=== PATIENT | female | born 1950 | race Caucasian/White ===

== ENCOUNTER 2019-03-29 08:00 | Outpatient (CLI) | payer MEDICARE, OTHER ==
[2019-03-29 18:51] LABS: BASOPHILS % (AUTO) 0.4 %; EOSINOPHILS # (AUTO) 0.1 10^3/uL (0.0-0.7); EOSINOPHILS % (AUTO) 1.4 %; HGB - HEMOGLOBIN 14.5 g/dL (12.0-16.0); LYMPHOCYTES # (AUTO) 1.8 10^3/uL (1.5-3.5); LYMPHOCYTES % (AUTO) 26.9 %; MEAN CORPUSCULAR HEMOGLOBIN 30.6 pg (27.0-31.0); MEAN CORPUSCULAR HGB CONC 33.7 g/dL (32.0-36.0); MEAN CORPUSCULAR VOLUME 90.8 fL (81.0-99.0); MEAN PLATELET VOLUME 8.9 fL (7.9-10.8); MONOCYTES # (AUTO) 0.5 10^3/uL (0.0-1.0); MONOCYTES % (AUTO) 6.8 %; NEUTROPHILS # (AUTO) 4.4 10^3/uL (1.5-6.6); NEUTROPHILS % (AUTO) 64.5 %; PLT - PLATELET COUNT 287 10^3/uL (130-450); RED BLOOD COUNT 4.75 10^6/uL (4.20-5.40); RED CELL DISTRIBUTION WIDTH 13.5 % (12.0-15.0); WHITE BLOOD COUNT 6.8 x10^3/uL (4.8-10.8)
[2019-03-29 19:24] LABS: ALBUMIN 4.3 g/dL (3.2-5.5); ALBUMIN/GLOBULIN RATIO 1.4 (1.0-2.2); ALKALINE PHOSPHATASE 121 IU/L (42-121); ALT ALANINE AMINOTRANSFERASE 13 IU/L (10-60); AST ASPARTATE AMINOTRANSFERASE 17 IU/L (10-42); BILIRUBIN,TOTAL 0.4 mg/dL (0.2-1.0); BUN - BLOOD UREA NITROGEN 9 mg/dL (6-20); CALCIUM 9.5 mg/dL (8.5-10.3); CARBON DIOXIDE - CO2 26 mmol/L (21-32); CHLORIDE 106 mmol/L (101-111); CHOLESTEROL 200 mg/dL; CREATININE 0.8 mg/dL (0.4-1.0); GFR - MDRD 71 (>89); GLUCOSE 104 mg/dL (70-100); HDL CHOLESTEROL 50 mg/dL; LDL CHOLESTEROL,CALCULATED 124 mg/dL; LDL/HDL RATIO 2.5 (<4.4); SODIUM 140 mmol/L (135-145); TOTAL PROTEIN 7.4 g/dL (6.7-8.2); VLDL CHOLESTEROL 26 mg/dL
== END 2019-03-29 23:59 | disposition home or self-care (01) ==
LOC: LAB.N 08:00
PROVIDERS: ATTEND Nurse Practitioner Gerontology
DX: Z79.899 Other long term (current) drug therapy (principal); I10 Essential (primary) hypertension
CPT/HCPCS: 36415; 80053; 80061; 83721; 84443; 85025

== ENCOUNTER 2019-08-29 13:12 | Outpatient (CLI) | payer MEDICARE, OTHER ==
--- NOTE | 2019-09-01 09:11 | Mammography Report ---
Reason: MAMMO SCREENING Procedure Date: 08/29/2019 Accession Number: [id number] / [id number] Procedure: MGN - Screening Mammo Dig Bilat CPT Code: FULL RESULT: EXAM: Screening Mammo Dig Bilat DATE: 08/29/2019 1:38 PM CLINICAL HISTORY: Screening encounter. TECHNIQUE: (B) - Bilateral CC and MLO views were obtained. COMPARISON: 01/09/2015 through 01/27/2012. PARENCHYMAL PATTERN: (F) - The breast(s) demonstrate(s) diffuse fatty replacement. FINDINGS: There are no suspicious masses, calcifications, or areas of distortion. IMPRESSION: Negative examination. BI-RADS category 1. RECOMMENDATION: (ANNUAL) - Recommend routine annual screening mammography. BI-RADS CATEGORY: (1) - Negative. STANDARD QUALIFYING STATEMENTS: 1. This examination was not reviewed with the aid of Computer-Aided Detection (CAD). 2. A negative or benign imaging report should not preclude biopsy if clinically suspicious findings are present. 3. Dense breasts may obscure an underlying neoplasm. 4. This examination was reviewed without the aid of 3D breast imaging (tomosynthesis).
== END 2019-08-29 13:13 | disposition home or self-care (01) ==
LOC: DI.N 13:12
PROVIDERS: ATTEND Nurse Practitioner Gerontology
DX: Z12.31 Encounter for screening mammogram for malignant neoplasm of breast (principal)
CPT/HCPCS: 77067

== ENCOUNTER 2019-11-07 11:47 | Outpatient (CLI) | payer MEDICARE, OTHER ==
[2019-11-07 18:45] LABS: BASOPHILS % (AUTO) 0.8 %; EOSINOPHILS # (AUTO) 0.1 10^3/uL (0.0-0.7); EOSINOPHILS % (AUTO) 2.5 %; HGB - HEMOGLOBIN 13.4 g/dL (12.0-16.0); LYMPHOCYTES # (AUTO) 1.4 10^3/uL (1.5-3.5); LYMPHOCYTES % (AUTO) 27.6 %; MEAN CORPUSCULAR HEMOGLOBIN 28.8 pg (27.0-31.0); MEAN CORPUSCULAR HGB CONC 32.4 g/dL (32.0-36.0); MEAN CORPUSCULAR VOLUME 88.8 fL (81.0-99.0); MEAN PLATELET VOLUME 10.2 fL (7.9-10.8); MONOCYTES # (AUTO) 0.5 10^3/uL (0.0-1.0); MONOCYTES % (AUTO) 8.9 %; NEUTROPHILS # (AUTO) 3.1 10^3/uL (1.5-6.6); PLT - PLATELET COUNT 294 10^3/uL (130-450); RED BLOOD COUNT 4.65 10^6/uL (4.20-5.40); RED CELL DISTRIBUTION WIDTH 13.3 % (12.0-15.0); WHITE BLOOD COUNT 5.2 x10^3/uL (4.8-10.8)
[2019-11-07 18:56] LABS: ALBUMIN 4.2 g/dL (3.2-5.5); ALBUMIN/GLOBULIN RATIO 1.4 (1.0-2.2); BILIRUBIN,TOTAL 0.3 mg/dL (0.2-1.0); CALCIUM 9.6 mg/dL (8.5-10.3); CREATININE 0.9 mg/dL (0.4-1.0); TOTAL PROTEIN 7.2 g/dL (6.7-8.2)
== END 2019-11-07 23:59 | disposition home or self-care (01) ==
LOC: LAB.N 11:47
PROVIDERS: ATTEND Nurse Practitioner Gerontology
DX: I10 Essential (primary) hypertension (principal); L29.9 Pruritus, unspecified
CPT/HCPCS: 36415; 80053; 85025

== ENCOUNTER 2020-09-03 07:00 | Outpatient (CLI) | payer MEDICARE, OTHER ==
[2020-09-03 18:16] LABS: BASOPHILS % (AUTO) 0.6 %; EOSINOPHILS # (AUTO) 0.2 10^3/uL (0.0-0.7); EOSINOPHILS % (AUTO) 2.2 %; HGB - HEMOGLOBIN 12.4 g/dL (12.0-16.0); LYMPHOCYTES # (AUTO) 2.5 10^3/uL (1.5-3.5); LYMPHOCYTES % (AUTO) 36.2 %; MEAN CORPUSCULAR HEMOGLOBIN 30.2 pg (27.0-31.0); MEAN CORPUSCULAR HGB CONC 32.7 g/dL (32.0-36.0); MEAN CORPUSCULAR VOLUME 92.2 fL (81.0-99.0); MEAN PLATELET VOLUME 10.4 fL (7.9-10.8); MONOCYTES # (AUTO) 0.5 10^3/uL (0.0-1.0); MONOCYTES % (AUTO) 7.2 %; NEUTROPHILS # (AUTO) 3.7 10^3/uL (1.5-6.6); NEUTROPHILS % (AUTO) 53.5 %; PLT - PLATELET COUNT 291 10^3/uL (130-450); RED BLOOD COUNT 4.11 10^6/uL (4.20-5.40); RED CELL DISTRIBUTION WIDTH 13.1 % (12.0-15.0); WHITE BLOOD COUNT 6.9 x10^3/uL (4.8-10.8)
[2020-09-03 18:47] LABS: ALBUMIN 4.2 g/dL (3.2-5.5); ALBUMIN/GLOBULIN RATIO 1.6 (1.0-2.2); ALKALINE PHOSPHATASE 136 IU/L (42-121); ALT ALANINE AMINOTRANSFERASE 12 IU/L (10-60); AST ASPARTATE AMINOTRANSFERASE 17 IU/L (10-42); BILIRUBIN,TOTAL 0.8 mg/dL (0.2-1.0); BUN - BLOOD UREA NITROGEN 27 mg/dL (6-20); CALCIUM 9.4 mg/dL (8.5-10.3); CARBON DIOXIDE - CO2 21 mmol/L (21-32); CHLORIDE 112 mmol/L (101-111); CHOL/HDL RATIO 4.3 (<4.4); CHOLESTEROL 199 mg/dL; CREATININE 1.1 mg/dL (0.4-1.0); GLUCOSE 82 mg/dL (70-100); HDL CHOLESTEROL 46 mg/dL; LDL CHOLESTEROL,CALCULATED 126 mg/dL; LDL/HDL RATIO 2.7 (<4.4); SODIUM 141 mmol/L (135-145); TOTAL PROTEIN 6.9 g/dL (6.7-8.2); VLDL CHOLESTEROL 27 mg/dL
[2020-09-03 19:56] LABS: HEMOGLOBIN A1c% 5.1 % (4.27-6.07)
== END 2020-09-03 23:59 | disposition home or self-care (01) ==
LOC: LAB.WCP 07:00
PROVIDERS: ATTEND Nurse Practitioner Family
DX: I10 Essential (primary) hypertension (principal); R73.9 Hyperglycemia, unspecified; Z79.899 Other long term (current) drug therapy
CPT/HCPCS: 36415; 80053; 80061; 83036; 83721; 84443; 85025

== ENCOUNTER 2020-10-05 11:12 | Outpatient (CLI) | payer MEDICARE, OTHER ==
[2020-10-05 18:59] LABS: CALCIUM 9.5 mg/dL (8.5-10.3)
== END 2020-10-05 23:59 | disposition home or self-care (01) ==
LOC: LAB.WCP 11:12
PROVIDERS: ATTEND Nurse Practitioner Family
DX: R94.4 Abnormal results of kidney function studies (principal)
CPT/HCPCS: 36415; 80048

== ENCOUNTER 2020-10-08 07:00 | Outpatient (CLI) | payer MEDICARE, OTHER ==
--- NOTE | 2020-10-08 16:21 | XRAY Report ---
PROCEDURE: Shoulder 3 View RT INDICATIONS: OSTEOARTHRITIS OF R SHOULDER TECHNIQUE: 4 views of the shoulder were acquired. COMPARISON: None. FINDINGS: Bones: No fractures or dislocations. Moderate osteoarthritic changes in glenohumeral joint are seen. There is likely postsurgical widening of acromioclavicular joint. No suspicious bony lesions. Visua lized ribs appear intact. Soft tissues: No suspicious soft tissue calcifications. IMPRESSION: Moderate glenohumeral joint osteoarthritis and likely postsurgical widening of acromiocl avicular joint. No fracture or dislocation. Reviewed by: Jose Melton MD on 10/08/2020 4:19 PM PST Approved by: Jose Melton MD on 10/08/2020 4:19 PM PST Station ID: [id number]
== END 2020-10-08 23:59 | disposition home or self-care (01) ==
LOC: DI.N 07:00
PROVIDERS: ATTEND Orthopaedic Surgery
DX: M19.011 Primary osteoarthritis, right shoulder (principal)

== ENCOUNTER 2020-11-07 11:37 | Outpatient (CLI) | payer MEDICARE, OTHER ==
--- NOTE | 2020-11-07 13:30 | CT Report ---
PROCEDURE: UPPER EXTREMITY WO - RT INDICATIONS: OSTEOARTHRITIS, RT SHLDR TECHNIQUE: Noncontrast 3 mm axial sections acquired of the right shoulder, with coronal and sagittal reformats. COMPARISON: None. FINDINGS: Image quality: Excellent. Bones: There is moderate periarticular osteophyte formation at the acromioclavicular joint. There is anterior subluxation of the humeral head. Moderate periarticular osteophyte formation at the glenohu meral joint is present. No fracture nor osseous lesion. Soft tissues: Visualized lungs are within normal limits. No soft tissue fluid collections. No region al adenopathy. Calcification of the rotator cuff tendons. IMPRESSION: 1. Acromioclavicular and glenohumeral joint osteoarthritis. 2. Calcific tendinitis of the rotator cuff; this could be further assessed with MRI, if clinically in dicated. 3. No fracture. Reviewed by: Nery Cortes MD on 11/07/2020 1:29 PM PST Approved by: Nery Cortes MD on 11/07/2020 1:29 PM PST Station ID: [id number]
== END 2020-11-07 11:38 | disposition home or self-care (01) ==
LOC: DI 11:37
PROVIDERS: ATTEND Orthopaedic Surgery
DX: M19.011 Primary osteoarthritis, right shoulder (principal); M75.31 Calcific tendinitis of right shoulder

== ENCOUNTER 2020-12-04 11:16 | Outpatient (CLI) | payer MEDICARE, OTHER ==
[2020-12-04 19:11] LABS: BASOPHILS % (AUTO) 0.7 %; EOSINOPHILS # (AUTO) 0.2 10^3/uL (0.0-0.7); EOSINOPHILS % (AUTO) 2.6 %; MEAN CORPUSCULAR HEMOGLOBIN 30.2 pg (27.0-31.0); MEAN CORPUSCULAR HGB CONC 32.3 g/dL (32.0-36.0); MEAN CORPUSCULAR VOLUME 93.5 fL (81.0-99.0); MEAN PLATELET VOLUME 10.8 fL (7.9-10.8); MONOCYTES # (AUTO) 0.5 10^3/uL (0.0-1.0); MONOCYTES % (AUTO) 7.9 %; NEUTROPHILS # (AUTO) 3.5 10^3/uL (1.5-6.6); NEUTROPHILS % (AUTO) 56.6 %; PLT - PLATELET COUNT 289 10^3/uL (130-450); RED CELL DISTRIBUTION WIDTH 13.1 % (12.0-15.0); WHITE BLOOD COUNT 6.1 x10^3/uL (4.8-10.8)
[2020-12-04 19:27] LABS: ALBUMIN 3.9 g/dL (3.2-5.5); ALBUMIN/GLOBULIN RATIO 1.4 (1.0-2.2); BILIRUBIN,TOTAL 0.5 mg/dL (0.2-1.0); CALCIUM 9.2 mg/dL (8.5-10.3); TOTAL PROTEIN 6.6 g/dL (6.7-8.2)
== END 2020-12-04 23:59 | disposition home or self-care (01) ==
LOC: LAB.WCP 11:16
PROVIDERS: ATTEND Nurse Practitioner Family
DX: Z01.812 Encounter for preprocedural laboratory examination (principal)
CPT/HCPCS: 36415; 80053; 85025

== ENCOUNTER 2020-12-07 08:00 | Outpatient (CLI) | payer MEDICARE, OTHER | END 2020-12-07 23:59 | disposition home or self-care (01) | LOC: LAB.R 08:00 | PROVIDERS: ATTEND Orthopaedic Surgery | DX: Z01.812 Encounter for preprocedural laboratory examination (principal); Z20.822 Contact with and (suspected) exposure to COVID-19 ==

== ENCOUNTER 2020-12-12 07:44 | Inpatient (IN) | payer MEDICARE, OTHER ==
[2020-12-12] MEDS ORDERED: LACTATED RINGERS 1,000 ML IV ONE ×2 (07:50→12:22)
[2020-12-12] MEDS ORDERED: DEXAMETHASONE 10 MG/ML VIAL ONE ×2 (08:11→08:42)
[2020-12-12] MEDS ORDERED: CELECOXIB 100 MG CAPSULE PO ONE (08:11)
[2020-12-12] MEDS ORDERED: ACETAMINOPHEN 1,000 MG/100 ML 100 ML IV ONE (08:12)
[2020-12-12] MEDS ORDERED: ceFAZolin 2 GM/50 ML 2 GM/50 ML BAG IV ONE (08:12)
[2020-12-12] MEDS ORDERED: SCOPOLAMINE PATCH TOP ONE (08:36)
[2020-12-12] MEDS ORDERED: MIDAZOLAM 2 MG/2 ML VIAL ONE ×2 (08:41→08:47)
[2020-12-12] MEDS ORDERED: LIDOCAINE-MPF 2% 5 ML VIAL ONE ×2 (08:42→08:46)
[2020-12-12] MEDS ORDERED: EPINEPHrine 1 MG/ML AMP ONE (08:42)
[2020-12-12] MEDS ORDERED: ROPIVACAINE 0.5% PF 20 ML AMPULE ONE (08:42)
[2020-12-12] MEDS ORDERED: ROCURONIUM 50 MG/5 ML VIAL ONE (08:46)
[2020-12-12] MEDS ORDERED: PROPOFOL 200 MG/20 ML VIAL IVP ONE (08:46)
[2020-12-12] MEDS ORDERED: ONDANSETRON 4 MG/2 ML VIAL ONE (08:46)
[2020-12-12] MEDS ORDERED: fentaNYL 100 MCG/2 ML VIAL ONE (08:48)
[2020-12-12] MEDS ORDERED: MORPHINE 2 MG/ML CARPUJECT IVP PRN (08:51)
[2020-12-12] MEDS ORDERED: fentaNYL 100 MCG/2 ML VIAL IVP PRN (08:51)
[2020-12-12] MEDS ORDERED: METOCLOPRAMIDE 10 MG/2 ML VIAL IVP PRN (08:51)
[2020-12-12] MEDS ORDERED: ATROPINE ABBOJECT 1 MG/10 ML SYRINGE IVP PRN (08:51)
[2020-12-12] MEDS ORDERED: HYDROmorphone 0.5 MG/0.5 ML SYRINGE IVP PRN (08:51)
[2020-12-12] MEDS ORDERED: ePHEDrine 50 MG/ML VIAL IVP PRN (08:51)
[2020-12-12] MEDS ORDERED: NALOXONE 0.4 MG/ML VIAL IVP PRN (08:51)
[2020-12-12] MEDS ORDERED: ONDANSETRON 4 MG/2 ML VIAL IVP PRN ×2 (08:51→12:19)
--- NOTE | 2020-12-12 08:51 | ANESTHESIA ---
Pre-Anesthesia VS, & Labs - Diagnosis right shoulder osteoarthritis - Procedure right total shoulder arthroscopy Vital Signs: Temp Pulse Resp BP Pulse Ox 36.8 C 84 18 107/61 100 12/12/20 07:50 12/12/20 07:50 12/12/20 07:50 12/12/20 07:50 12/12/20 07:50 Height: 5 ft 2 in Weight (kg): 64.4 kg Body Mass Index: 25.9 BMI Classification: Overweight - NPO >8 hours - Is Patient ?: No - Lab Results Current Lab Results: Laboratory Tests 12/12/20 08:20: POC Whole Bld Glucose 79 Lab results reviewed: Yes Home Medications and Allergies Home Medications: Ambulatory Orders Amlodipine Besylate [Norvasc] 10 mg PO DAILY 12/06/20 Cimetidine 800 mg PO PRN PRN 12/06/20 Spironolactone [Aldactone] 25 mg PO DAILY 12/06/20 Sumatriptan Succinate [Imitrex] 50 mg PO ONCE PRN 12/06/20 buPROPion HCL [Bupropion HCl Sr] 200 mg PO DAILY 12/06/20 hydrOXYzine HCL [Hydroxyzine HCl] 25 mg PO QID PRN 12/06/20 traMADol [Ultram] 50 mg PO DAILY PRN 12/06/20 Hydrochlorothiazide 12.5 mg PO DAILY 04/04/15 Lisinopril 40 mg PO DAILY 04/04/15 Quetiapine Fumarate [Seroquel] 300 mg PO QPM 04/04/15 Amlodipine Besylate [Norvasc] 10 mg PO DAILY 12/06/20 Cimetidine 800 mg PO PRN PRN 12/06/20 Spironolactone [Aldactone] 25 mg PO DAILY 12/06/20 Sumatriptan Succinate [Imitrex] 50 mg PO ONCE PRN 12/06/20 buPROPion HCL [Bupropion HCl Sr] 200 mg PO DAILY 12/06/20 hydrOXYzine HCL [Hydroxyzine HCl] 25 mg PO QID PRN 12/06/20 traMADol [Ultram] 50 mg PO DAILY PRN 12/06/20 Allergies/Adverse Reactions: Allergies Allergy/AdvReac Type Severity Reaction Status Date / Time morphine Allergy Itching Verified 04/04/15 18:23 Anes History & Medical History - Anesthetic History Anesthesia Complications: reports: Post-Operative Nausea/Vomiting Family history of Anesthesia Complications: Denies Family history of Malignant Hyperthermia: Denies - Medical History Cardiovascular: reports: Hypertension, Murmur Pulmonary: reports: None Gastrointestinal: reports: GERD Urinary: reports: None Musculoskeletal: reports: Osteoarthritis, Other Endocrine/Autoimmune: reports: None Skin: reports: None Smoking Status: Never smoker - Surgical History General: Colonoscopy, EGD Gynecologic: Hysterectomy Orthopedic: Knee replacement, Shoulder arthroplasty Exam General: Alert, Oriented x3, Cooperative, No acute distress Dental: Dentures full Upper, Dentures full Lower Mouth Openin Fingerbreadth Neck Mobility: Normal Mallampati classification: II Respiratory: Lungs clear, Normal breath sounds, No respiratory distress, No accessory muscle use Plan Anesthesia Type: General, Interscalene Block Regional Block: Per Surgeon's request for Post Op pain control Consent for Procedure(s) Verified and Reviewed: Yes Code Status: Attempt Resuscitation ASA classification: 2-Mild systemic disease Is this case an emergency?: No
[2020-12-12] MEDS ORDERED: LACTATED RINGERS 1,000 ML IV SCH (09:00)
[2020-12-12] MEDS ORDERED: PHENYLEPHRINE 10 MG/ML VIAL ONE (09:27)
[2020-12-12] MEDS ORDERED: TRANEXAMIC ACID 1,000 MG/10 ML VIAL ONE (09:58)
[2020-12-12] MEDS ORDERED: THROMBIN (BOVINE) 5,000 UNIT VIAL TOP ONE (10:46)
--- NOTE | 2020-12-12 12:00 | OPERATIVE REPORT ---
Operative Report - General Admit Date: 12/12/20 Procedure Date: 12/12/20 Planned Procedure: Right total shoulder arthroplasty Pre-Op Diagnosis: Osteoarthritis glenohumeral joint right shoulder Procedure Performed: Right total shoulder arthroplasty using the [employer] Integra total shoulder arthroplasty: 42 mm x 16 mm humeral head, standard proximal body, 13 mm distal body, extra small cemented all polyethylene glenoid component with finlock - Procedure Note Primary Surgeon: German Estrella MD Secondary Surgeon: Artis REICH Anesthesia Technique: General ET tube, Regional block Pathology: Complete loss of articular cartilage to the humeral head and glenoid right shoulder. Rotator cuff was intact. Estimated Blood Loss (mL): 75 Indications: This is a 70-year-old woman with daily pain to her right shoulder not responding to conservative treatment. She has limited and painful movement right shoulder, crepitus, abnormal x-rays that show complete loss of joint space, abnormal CT scan of the right shoulder showing complete loss of glenohumeral joint space. Findings: There was complete loss of articular cartilage to the glenohumeral joint with osteophytes about humeral head. Complications: None noted - Other Other Information/Narrative: The patient was brought to the operating room and placed in a beachchair positioner. The head of the bed was elevated to 30 degrees and the hips and knees were flexed about 30 degrees. The [employer] beachchair positioner was utilized with the attached arm escalera. After satisfactory anesthesia had been achieved, the facemask was positioned carefully and the neck was placed in a neutral position. The right shoulder and right upper extremity were prepped and draped in a sterile manner in the usual fashion. A timeout procedure was performed by the entire operating room team and all were in agreement. A deltopectoral incision was made starting near the clavicle, lateral to the coracoid and extending to the deltoid laterally. The cephalic vein was identified as a guide to the deltopectoral interval. The cephalic vein was retracted medially and the deltoid laterally. The pectoralis insertion was released over about a 1 cm area. The biceps tendon was identified in the rotator interval. The biceps tendon was divided and tagged to the pectoralis. A subscapularis tenotomy was performed about a centimeter medial to its insertion this was taken down through capsule. Proximally the rotator interval was opened and distally the exposure was directly against the inferior humeral head with care taken to protect the axillary nerve. The conjoined tendon had been retracted medially and care was taken to protect the muscular cutaneous nerve. The anterior inferior capsule was released, small osteophytes were removed and the humeral head easily dislocated with external rotation. The humeral head was opened with a starting awl. The intramedullary cutting guide was utilized. The guidepin was secured with half pins with the guide set at 30 degrees of retroversion. An oscillating saw was used through the captured guide to perform the osteotomy of the humeral head. Care was taken to protect the rotator cuff.The humeral head was then retracted the arm was placed in some abduction and slight external rotation. A posterior glenoid retractor was inserted and another anteriorly. The center of the glenoid was identified. The size of the glenoid was an extra small. A K wire was then inserted through the center of the glenoid guide obtaining bicortical pin fixation. Next the glenoid reamer was utilized to lightly decorticate and contour the glenoid. A trial glenoid component was inserted and had good fit. Next the glenoid guide was inserted after a central drill hole has been made. 2 inferior holes and 1 superior hole was drilled with the provided drill bit. The holes were cleared of any debris. A glenoid pegged pusher was seated, obtaining good fit. The drill holes were cleared with pulse lavage, Gelfoam and thrombin. Cement was placed in the superior and 2 inferior glenoid drill holes. The extra small glenoid was then inserted and gently impacted. This was found to have excellent stability. The humerus was then opened with progressive gentle reaming by hand to 13 mm. A standard proximal body was indicated. Trial reduction was performed utilizing an eccentric head. The 42 mm x 16 mm had provided good coverage of the humeral head and good stability. The size of the humeral head osteotomy was approximately 42 to 44 mm and approximately 14 mm thick; the final humeral head prosthesis was very close to the osteotomy fragment. The trial reduction was performed there was good stability and motion. The permanent humeral component was assembled on the back table this was gently impacted and left just a little bit proud to allow impacting the humeral head on the trunnion before full impaction of the humeral component. The shoulder was reduced it was stable to anterior and posterior stress, good bounce back, over 120 degrees of flexion, external rotation was stable to 35 degrees or more. Internal rotation to opposite shoulder. The wound was irrigated. The subscapularis had been tagged with #2 Ethibond and 2 sutures were taken through the prosthesis before proceeding with the humeral prosthesis. Additional sutures were placed to stabilize the arthrotomy from superior to inferior. This provided good stability to the shoulder. There was not any excessive tension to the subscapularis or rotator interval repair. The the deltopectoral interval was closed with a 2-0 suture. The subcutaneous tissue was closed with 2-0 suture and the skin was closed with a 3-0 subcuticular suture as well as Dermabond. A silver impregnated dressing was applied as well as a sling. She received 2 g of Ancef intravenously. She tolerated the procedure well. A physician fire assistant was utilized to provide retraction, protection of vital structures, positioning, wound closure.
[2020-12-12] MEDS ORDERED: SEVOFLURANE 250 ML LIQUID INH ONE (12:01)
[2020-12-12] MEDS ORDERED: SODIUM CHLORIDE FLUSH 0.9% 10 ML SYRINGE IVP PRN (12:19)
[2020-12-12] MEDS ORDERED: NEOSTIGMINE 1 MG/1 ML 10 ML MDV ONE (12:55)
[2020-12-12] MEDS ORDERED: GLYCOPYRROLATE 1 MG/5 ML VIAL ONE (12:55)
[2020-12-12] MEDS ORDERED: SODIUM CHLORIDE 0.9% 500 ML IV ONE (13:14)
[2020-12-12] MEDS: SODIUM CHLORIDE 0.9% 1,000 ML IV SCH ×2 (13:36→23:40)
[2020-12-12 13:48] LABS: BASOPHILS % (AUTO) 0.2 %; EOSINOPHILS % (AUTO) 0.1 %; HGB - HEMOGLOBIN 11.6 g/dL (12.0-16.0); LYMPHOCYTES # (AUTO) 0.4 10^3/uL (1.5-3.5); LYMPHOCYTES % (AUTO) 3.5 %; MEAN CORPUSCULAR HEMOGLOBIN 30.1 pg (27.0-31.0); MEAN CORPUSCULAR HGB CONC 32.8 g/dL (32.0-36.0); MEAN CORPUSCULAR VOLUME 91.7 fL (81.0-99.0); MEAN PLATELET VOLUME 10.2 fL (7.9-10.8); MONOCYTES # (AUTO) 0.1 10^3/uL (0.0-1.0); MONOCYTES % (AUTO) 0.6 %; NEUTROPHILS # (AUTO) 10.5 10^3/uL (1.5-6.6); NEUTROPHILS % (AUTO) 95.1 %; PLT - PLATELET COUNT 238 10^3/uL (130-450); RED BLOOD COUNT 3.86 10^6/uL (4.20-5.40)
[2020-12-12 14:07] LABS: ALBUMIN 3.7 g/dL (3.2-5.5); ALBUMIN/GLOBULIN RATIO 1.4 (1.0-2.2); BILIRUBIN,TOTAL 0.4 mg/dL (0.2-1.0); CALCIUM 8.9 mg/dL (8.5-10.3); CREATININE 1.2 mg/dL (0.4-1.0); TOTAL PROTEIN 6.3 g/dL (6.7-8.2)
[2020-12-12] MEDS: ceFAZolin 2 GM/50 ML 2 GM/50 ML BAG IV SCH ×2 (14:18→21:52)
--- NOTE | 2020-12-12 14:29 | PHARMACY PROGRESS NOTE ---
- Best Possible Medication History Admit Date and Time: 12/12/20 0744 Processed by: Pharmacy Medication History completed: Yes Patient Interview: Completed Secondary Source(s): Insurance records (Completed 12/12 by Vance) As the person ultimately responsible for medication therapy, providers are able to order a medication from an existing home medication list in [facility] via the "Reconcile Routine" prior to Confirmation of that medication by support analyst. Such practice is discouraged except when the physician, in their clinical judgment, deems that a medical need exists for a medication without regard to previous use.
--- NOTE | 2020-12-12 16:34 | CONSULTATION NOTE ---
Referring Provider Name of Referring Provider:: Dr. Estrella Consult Date: 12/12/20 Chief Complaint - Chief Complaint Chief Complaint: Right total shoulder pain History of Present Illness - Admitted From Admitted From:: medical floor - History Obtained From Records Reviewed: [facility] History obtained from: pt Exam Limitations: no - History of Present Illness HPI Comment/Other: This is 70 years old female with medical history Significant of hypertension, depressure and anxiety, GERD. Medical team was consulted for medical management of Status post of Right total shoulder arthroplasty. Patient report right shoulder has some pain. Patient just finished her right shoulder surgery. Patient deny chest pain, fever, shortness breathing. 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 Meds/Allgy - Home Medications Home Medications: Ambulatory Orders Medication Instructions Recorded Confirmed Amlodipine Besylate [Norvasc] 10 mg PO DAILY 12/06/20 12/12/20 Spironolactone [Aldactone] 25 mg PO BID 12/06/20 12/12/20 Sumatriptan Succinate [Imitrex] 50 mg PO DAILY PRN MDD 100 MG 12/06/20 12/12/20 hydrOXYzine HCL [Hydroxyzine HCl] 25 mg PO QID PRN 12/06/20 12/12/20 traMADol [Ultram] 50 mg PO Q6H PRN 12/06/20 12/12/20 Lisinopril [Zestril] 40 mg PO DAILY 12/12/20 12/12/20 Mirtazapine [Remeron] 15 mg PO QPM 12/12/20 12/12/20 QUEtiapine [SEROquel] 100 mg PO QPM 12/12/20 12/12/20 buPROPion [Wellbutrin Sr] 100 mg PO DAILY 12/12/20 12/12/20 hydroCHLOROthiazide [Hydrodiuril] 12.5 mg PO DAILY 12/12/20 12/12/20 oxyCODONE [Roxicodone] 5 mg PO Q6H PRN 12/12/20 12/12/20 rOPINIRole [Requip] 1 mg PO QPM 12/12/20 12/12/20 - Allergies Allergies/Adverse Reactions: Allergies Allergy/AdvReac Type Severity Reaction Status Date / Time morphine Allergy Itching Verified 04/04/15 18:23 Review of Systems - Constitutional Constitutional: denies: Fever, Chills, Diaphoresis - Eyes Eyes: denies: Pain, Blurred vision, Field loss, Vision loss - Ears, Nose & Throat Ears, Nose & Throat: denies: Ear pain, Vertigo, Nosebleeds, Sore throat, Bleeding gums - Cardiovascular Cariovascular: denies: Irregular heart rate, Palpitations, Chest pain, Lig htheadedness, Syncope, Exertional dyspnea, Decr. exercise tolerance - Respiratory Respiratory: denies: Cough, Sputum production, Wheezing, Hemoptysis, SOB at res t, SOB with exertion - Gastrointestinal Gastrointestinal: denies: Abdominal pain, Constipation, Diarrhea, Black stools, Bloody stools, Nausea, Vomiting - Genitourinary Genitourinary: denies: Dysuria, Urgency, Incontinence - Musculoskeletal Musculoskeletal: reports: Limited range of motion. denies: Muscle pain, Muscle aches - Integumentary Integumentary: denies: Rash, Lesions, Lumps - Neurological Neurological: denies: General weakness, Focal weakness, Headache, Numbness, Pre- existing deficit, Abnormal gait, Seizures, Incoordination, Slurred speech - Psychiatric Psychiatric: denies: Depression, Suicidal, Delusions - Endocrine Endocrine: denies: Polyuria, Polydypsia - Hematologic/Lymphatic Hematologic/Lymphatic: denies: Anemia, Petechiae, Blood clots Exam - Vital Signs Vital Signs: Vital Signs x48h Temp Pulse Pulse Resp BP BP Pulse Ox 12/12/20 15:50 87 16 107/52 L 99 12/12/20 14:49 36.4 C L 88 16 102/52 L 97 12/12/20 13:49 85 18 89/49 L 99 12/12/20 13:06 36.4 C L 88 16 75/47 L 12/12/20 12:44 36.6 C 102 H 19 97/50 L 99 12/12/20 12:36 36.7 C 110 H 16 98/52 L 97 12/12/20 12:31 36.7 C 114 H 19 100/46 L 100 12/12/20 12:26 36.7 C 115 H 22 131/55 H 99 12/12/20 12:21 36.7 C 99 15 141/65 H 99 - Physical Exam General Appearance: positive: No acute distress, Alert. negative: Lethargic Eyes Bilateral: positive: Normal inspection, PERRL, No lid inflammation ENT: positive: ENT inspection nml, No signs of dehydration. negative: Purulent nasal drainage Neck: positive: Nml inspection, Trachea midline. negative: Thyromegaly, Tracheal deviation Respiratory: positive: Chest non-tender, No respiratory distress, Breath sounds nml. negative: Wheezes, Rales Cardiovascular: positive: Regular rate & rhythm. negative: Tachycardia, Bradycardia Peripheral Pulses: positive: 2+ Abdomen: positive: Non-tender, Nml bowel sounds, No distention. negative: Tenderness, Guarding, Rebound Back: positive: Nml inspection Skin: positive: Color nml, Warm, Dry. negative: Cyanosis, Diaphoresis, Pallor Extremities: negative: Calf tenderness Neurologic/Psychiatric: positive: Oriented x3, Sensation nml, Mood/affect nml. negative: Weakness, Sensory loss, Facial droop, Slurred/abnml speech, Depressed mood/affect Conclusion/Plan - Plan Plan: 1, Hypotension, patient present medical floor, nurse report patient blood pres sure is 74/47, Immediate assessment to patient patient is asymptomatic, She logically talk with me. She denies chest pain, dizziness. She reported she did have hypotension in the past. She reported she take some of the blood pressure medicine in the morning. Order 500 cc intravenous bolus normal saline, Recheck blood pressure then patient systolic blood pressure is 100. Hold patient's home blood pressure medicine now, Continue vital signs monitor, continue intravenous IV fluids. 2, depression/anxiety, Patient has history of depression and anxiety, Will resume patient home medication, Continue monitor patient with vital and lab monitor 3, Dehydration, Patient's creatinine increases to 1.2, her baseline 1.0. 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
[2020-12-12] MEDS ORDERED: SUMAtriptan 25 MG TABLET PO PRN (16:48)
[2020-12-12] MEDS ORDERED: hydrOXYzine PAMOATE 25 MG CAPSULE PO PRN (16:49)
[2020-12-12] MEDS: FAMOTIDINE 20 MG TABLET PO SCH ×2 (16:59→20:00)
[2020-12-12] MEDS: SODIUM CHLORIDE FLUSH 0.9% 10 ML SYRINGE IVP SCH ×2 (16:59→23:44)
[2020-12-12] MEDS: ACETAMINOPHEN 500 MG TABLET PO SCH ×2 (17:00→23:40)
--- NOTE | 2020-12-12 17:01 | ANESTHESIA POST OP EVALUATION ---
Anesthesia Post Eval - Post Anesthesia Eval Vitals: Last Vital Signs Temp 36.4 C L 12/12/20 14:49 Pulse 87 12/12/20 15:50 Resp 16 12/12/20 15:50 BP 107/52 L 12/12/20 15:50 Pulse Ox 99 12/12/20 15:50 CV Function Including HR & BP: positive: Stable Pain Control: positive: Satisfactory Nausea & Vomiting: positive: Negative Mental Status: positive: Baseline Respiratory Status: Airway Patent Hydration Status: Satisfactory Anesthesia Complications: positive: None
[2020-12-12] MEDS ORDERED: ACETAMINOPHEN 325 MG TABLET PO SCH (18:00)
[2020-12-12] MEDS: ASPIRIN EC 81 MG TABLET PO SCH (20:00)
[2020-12-12] MEDS: CELECOXIB 100 MG CAPSULE PO SCH (20:01)
[2020-12-12] MEDS: ethyl alcohoL 62% SWAB AMPULE NAS SCH (20:01)
[2020-12-12] MEDS: oxyCODONE 5 MG TABLET PO PRN (20:03)
[2020-12-12] MEDS ORDERED: rOPINIRole 1 MG TABLET PO SCH (21:00)
[2020-12-12] MEDS ORDERED: MIRTAZAPINE 15 MG TABLET PO SCH (21:00)
[2020-12-12] MEDS ORDERED: QUEtiapine 100 MG TABLET PO SCH (21:00)
[2020-12-13] MEDS: oxyCODONE 5 MG TABLET PO PRN ×3 (02:25→15:04)
[2020-12-13 04:59] LABS: BASOPHILS % (AUTO) 0.1 %; HGB - HEMOGLOBIN 9.9 g/dL (12.0-16.0); LYMPHOCYTES # (AUTO) 0.8 10^3/uL (1.5-3.5); LYMPHOCYTES % (AUTO) 9.4 %; MEAN CORPUSCULAR HEMOGLOBIN 29.8 pg (27.0-31.0); MEAN CORPUSCULAR HGB CONC 32.1 g/dL (32.0-36.0); MEAN CORPUSCULAR VOLUME 92.8 fL (81.0-99.0); MEAN PLATELET VOLUME 10.4 fL (7.9-10.8); MONOCYTES # (AUTO) 0.8 10^3/uL (0.0-1.0); MONOCYTES % (AUTO) 9.5 %; NEUTROPHILS # (AUTO) 6.9 10^3/uL (1.5-6.6); NEUTROPHILS % (AUTO) 80.5 %; PLT - PLATELET COUNT 202 10^3/uL (130-450); RED BLOOD COUNT 3.32 10^6/uL (4.20-5.40); RED CELL DISTRIBUTION WIDTH 12.7 % (12.0-15.0); WHITE BLOOD COUNT 8.6 x10^3/uL (4.8-10.8)
[2020-12-13 05:07] LABS: CALCIUM 8.5 mg/dL (8.5-10.3)
[2020-12-13] MEDS: ACETAMINOPHEN 500 MG TABLET PO SCH ×2 (05:52→13:19)
--- NOTE | 2020-12-13 07:52 | PROVIDER PROGRESS NOTE ---
Subjective - General Admit Date: 12/12/20 Procedure Date: 12/12/20 Post Op Days: 1 - Review of Systems Wound/Incisions: positive: Dressing dry and intact General: negative: Fever, Chills Musculoskeletal: positive: Joint pain - Other Other Information/Narrative: Denies numbness tingling right arm Objective - Patient Data Vital Signs: Vital Signs x48h Temp Pulse Resp BP Pulse Ox 12/13/20 04:29 36.6 C 81 16 113/55 L 98 12/12/20 23:52 36.7 C 87 16 110/56 L 98 Weight: Weight 12/11/20 12/12/20 12/13/20 23:59 23:59 23:59 Weight (kg) 64.4 kg Intake & Output: Intake and Output Totals x24h 12/11/20 12/12/20 12/13/20 23:59 23:59 23:59 Intake Total 2461 Output Total 75 Balance 2386 - Lab Results Lab Results: 12/13/20 04:12 12/13/20 04:12 Other Lab Results: Lab Results x24hrs 12/13/20 12/13/20 12/12/20 Range/Units 04:12 04:12 13:43 WBC 8.6 (4.8-10.8) x10^3/uL RBC 3.32 L (4.20-5.40) 10^6/uL Hgb 9.9 L (12.0-16.0) g/dL Hct 30.8 L (37.0-47.0) % MCV 92.8 (81.0-99.0) fL MCH 29.8 (27.0-31.0) pg MCHC 32.1 (32.0-36.0) g/dL RDW 12.7 (12.0-15.0) % Plt Count 202 (130-450) 10^3/uL MPV 10.4 (7.9-10.8) fL Neut # (Auto) 6.9 H (1.5-6.6) 10^3/uL Lymph # (Auto) 0.8 L (1.5-3.5) 10^3/uL [place] # (Auto) 0.8 (0.0-1.0) 10^3/uL Eos # (Auto) 0.0 (0.0-0.7) 10^3/uL Baso # (Auto) 0.0 (0.0-0.1) 10^3/uL Absolute Nucleated RBC 0.00 x10^3/uL Nucleated RBC % 0.0 /100WBC Sodium 138 138 (135-145) mmol/L Potassium 4.2 3.8 (3.5-5.0) mmol/L Chloride 113 H 106 (101-111) mmol/L Carbon Dioxide 19 L 20 L (21-32) mmol/L Anion Gap 6.0 12.0 (6-13) BUN 22 H 25 H (6-20) mg/dL Creatinine 1.0 1.2 H (0.4-1.0) mg/dL Estimated GFR (MDRD) 55 L 44 L (>89) Glucose 176 H 198 H (70-100) mg/dL POC Whole Bld Glucose (70 - 100) mg/dL Calcium 8.5 8.9 (8.5-10.3) mg/dL Total Bilirubin 0.4 (0.2-1.0) mg/dL AST 21 (10-42) IU/L ALT 13 (10-60) IU/L Alkaline Phosphatase 135 H (42-121) IU/L Total Protein 6.3 L (6.7-8.2) g/dL Albumin 3.7 (3.2-5.5) g/dL Globulin 2.6 (2.1-4.2) g/dL Albumin/Globulin Ratio 1.4 (1.0-2.2) 12/12/20 12/12/20 Range/Units 13:43 08:20 WBC 11.0 H (4.8-10.8) x10^3/uL RBC 3.86 L (4.20-5.40) 10^6/uL Hgb 11.6 L (12.0-16.0) g/dL Hct 35.4 L (37.0-47.0) % MCV 91.7 (81.0-99.0) fL MCH 30.1 (27.0-31.0) pg MCHC 32.8 (32.0-36.0) g/dL RDW 13.0 (12.0-15.0) % Plt Count 238 (130-450) 10^3/uL MPV 10.2 (7.9-10.8) fL Neut # (Auto) 10.5 H (1.5-6.6) 10^3/uL Lymph # (Auto) 0.4 L (1.5-3.5) 10^3/uL [place] # (Auto) 0.1 (0.0-1.0) 10^3/uL Eos # (Auto) 0.0 (0.0-0.7) 10^3/uL Baso # (Auto) 0.0 (0.0-0.1) 10^3/uL Absolute Nucleated RBC 0.00 x10^3/uL Nucleated RBC % 0.0 /100WBC Sodium (135-145) mmol/L Potassium (3.5-5.0) mmol/L Chloride (101-111) mmol/L Carbon Dioxide (21-32) mmol/L Anion Gap (6-13) BUN (6-20) mg/dL Creatinine (0.4-1.0) mg/dL Estimated GFR (MDRD) (>89) Glucose (70-100) mg/dL POC Whole Bld Glucose 79 (70 - 100) mg/dL Calcium (8.5-10.3) mg/dL Total Bilirubin (0.2-1.0) mg/dL AST (10-42) IU/L ALT (10-60) IU/L Alkaline Phosphatase (42-121) IU/L Total Protein (6.7-8.2) g/dL Albumin (3.2-5.5) g/dL Globulin (2.1-4.2) g/dL Albumin/Globulin Ratio (1.0-2.2) - Current Medications Current Medications: Current Medications Generic Name Dose Route Start Last Admin Trade Name Bernardq PRN Reason Stop Dose Admin Acetaminophen 1,000 mg 12/12/20 18:00 12/13/20 05:52 Acetaminophen 500 Mg Tablet PO 1,000 mg Q6HR OJSE Administration Alcohol 1 amp 12/12/20 21:00 12/12/20 20:01 Ethyl Alcohol 62% Swab Ampule FLO 1 amp BID JOSE Administration Aspirin 81 mg 12/12/20 21:00 12/12/20 20:00 Aspirin Ec 81 Mg Tablet PO 81 mg BID JOSE Administration Celecoxib 200 mg 12/12/20 21:00 12/12/20 20:01 Celecoxib 100 Mg Capsule PO 200 mg BID JOSE Administration Famotidine 20 mg 12/12/20 16:40 12/12/20 20:00 Famotidine 20 Mg Tablet PO 20 mg BID JOSE Administration Sodium Chloride 1,000 mls @ 100 mls/hr 12/12/20 14:00 12/12/20 23:40 Normal Saline 0.9% IV 12/13/20 09:59 100 mls/hr .Q10H JOSE Administration Mirtazapine 15 mg 12/12/20 21:00 12/12/20 21:52 Mirtazapine 15 Mg Tablet PO 15 mg QPM JOSE Administration Oxycodone HCl 5 mg 12/12/20 12:19 12/13/20 02:25 Oxycodone 5 Mg Tablet PO 5 mg Q6HR PRN Administration PAIN Quetiapine Fumarate 100 mg 12/12/20 21:00 12/12/20 21:52 Quetiapine 100 Mg Tablet PO 100 mg QPM JOSE Administration Ropinirole HCl 1 mg 12/12/20 21:00 12/12/20 20:03 Ropinirole 1 Mg Tablet PO 1 mg QPM JOSE Administration Sodium Chloride 10 ml 12/12/20 17:00 12/12/20 23:44 Sodium Chloride Flush 0.9% 10 Ml Syringe IVP Not Given 0100,0900,1700 JOSE - Physical Exam Wound/Incisions: positive: Dressing dry and intact Skin: positive: Color nml, Warm Neurologic/Psychiatric: positive: Oriented x3, Motor nml Comments/Other: Patient able to Move right hand and fingers Impression/Plan - Problem List Problem List: Patient is a 70-year-old female postop day 1 after right shoulder total arthroplasty. Patient's dressing is clean and dry patient reports she has some joint pain but is better controlled with the medication. Patient is able to move the extremity.Patient instructed on gentle range of motion. Patient is to not push pull right arm use sling for comfort. Patient is stable after surgery and if pain is well controlled can be discharged today
--- NOTE | 2020-12-13 08:23 | XRAY Report ---
PROCEDURE: Shoulder 2 View RT INDICATIONS: Post op TECHNIQUE: 2 views of the shoulder were acquired. COMPARISON: None. FINDINGS: Bones: Patient is status post right shoulder arthroplasty with anatomic alignment of right shoulder. Expected postsurgical widening of acromioclavicular joint is also noted. No gross hardware loosening or failure. No fractures or dislocations. No suspicious bony lesions. Visualized ribs appear intact . Soft tissues: Post surgical changes are noted in superior lateral shoulder soft tissue. No suspiciou s soft tissue calcifications. IMPRESSION: Postoperative changes from right shoulder arthroplasty with anatomic shoulder alignment. No fracture or dislocation. Expected postsurgical widening of the acromioclavicular joint. Reviewed by: Jose Melton MD on 12/13/2020 8:22 AM PST Approved by: Jose Melton MD on 12/13/2020 8:22 AM PST Station ID: [id number]
[2020-12-13] MEDS: FAMOTIDINE 20 MG TABLET PO SCH (08:51)
[2020-12-13] MEDS: ASPIRIN EC 81 MG TABLET PO SCH (08:51)
[2020-12-13] MEDS: CELECOXIB 100 MG CAPSULE PO SCH (08:52)
[2020-12-13] MEDS: ethyl alcohoL 62% SWAB AMPULE NAS SCH (08:53)
[2020-12-13] MEDS: SODIUM CHLORIDE FLUSH 0.9% 10 ML SYRINGE IVP SCH (08:54)
[2020-12-13] MEDS ORDERED: buPROPion SR 100 MG TABLET PO SCH (09:00)
[2020-12-13 16:16] VITALS: BP 110/85
== END 2020-12-13 16:40 | disposition home or self-care (01) | DRG 483 ==
LOC: MS2 07:44
PROVIDERS: ADMIT Orthopaedic Surgery; ATTEND Physician Assistant
PROC: 0RRJ0JZ Replacement of Right Shoulder Joint with Synthetic Substitute, Open Approach (ICD-10-PCS; principal; 2020-12-12 09:00)
DX: M19.011 Primary osteoarthritis, right shoulder (principal); I95.9 Hypotension, unspecified; I10 Essential (primary) hypertension; F32.9 Major depressive disorder, single episode, unspecified; F41.9 Anxiety disorder, unspecified; K21.9 Gastro-esophageal reflux disease without esophagitis; E86.0 Dehydration; E66.3 Overweight; Z68.25 Body mass index [BMI] 25.0-25.9, adult
CPT/HCPCS: 36415; 73030; 80048; 80053; 85025; 97110; 97161; 97165; 97530; A9270; J0131; J0690; J3490; J7120

== ENCOUNTER 2021-03-04 08:00 | Outpatient (CLI) | payer MEDICARE, OTHER ==
[2021-03-04 18:02] LABS: BASOPHILS # (AUTO) 0.1 10^3/uL (0.0-0.1); BASOPHILS % (AUTO) 0.8 %; EOSINOPHILS # (AUTO) 0.1 10^3/uL (0.0-0.7); EOSINOPHILS % (AUTO) 2.2 %; HGB - HEMOGLOBIN 12.9 g/dL (12.0-16.0); LYMPHOCYTES # (AUTO) 1.5 10^3/uL (1.5-3.5); LYMPHOCYTES % (AUTO) 25.5 %; MEAN CORPUSCULAR HEMOGLOBIN 29.4 pg (27.0-31.0); MEAN CORPUSCULAR HGB CONC 31.5 g/dL (32.0-36.0); MEAN CORPUSCULAR VOLUME 93.4 fL (81.0-99.0); MEAN PLATELET VOLUME 10.6 fL (7.9-10.8); MONOCYTES # (AUTO) 0.5 10^3/uL (0.0-1.0); MONOCYTES % (AUTO) 8.5 %; NEUTROPHILS # (AUTO) 3.7 10^3/uL (1.5-6.6); NEUTROPHILS % (AUTO) 62.7 %; PLT - PLATELET COUNT 309 10^3/uL (130-450); RED BLOOD COUNT 4.39 10^6/uL (4.20-5.40); RED CELL DISTRIBUTION WIDTH 13.1 % (12.0-15.0); WHITE BLOOD COUNT 5.9 x10^3/uL (4.8-10.8)
[2021-03-04 18:18] LABS: CALCIUM 9.3 mg/dL (8.5-10.3); POTASSIUM 3.9 mmol/L (3.5-5.0)
== END 2021-03-04 23:59 | disposition home or self-care (01) ==
LOC: LAB.WCP 08:00
PROVIDERS: ATTEND Nurse Practitioner Family
DX: R94.4 Abnormal results of kidney function studies (principal); D64.9 Anemia, unspecified
CPT/HCPCS: 36415; 80048; 85025

== ENCOUNTER 2021-03-18 07:00 | Outpatient (CLI) | payer MEDICARE, OTHER ==
--- NOTE | 2021-03-18 14:47 | XRAY Report ---
PROCEDURE: Shoulder 2 View RT INDICATIONS: OSTEOARTHRITIS, R SHOULDER TECHNIQUE: 2 views of the shoulder were acquired. COMPARISON: 12/13/2020 right shoulder 2 views.. FINDINGS: Bones: No fractures or dislocations, shoulder arthroplasty device right proximal humerus.. No suspi cious bony lesions. Visualized ribs appear intact. Soft tissues: No suspicious soft tissue calcifications. IMPRESSION: Right proximal humeral arthroplasty, no acute disease. Prior acromioplasty at the [facility]. Reviewed by: Dima Cruz MD on 03/18/2021 2:46 PM PDT Approved by: Dima Cruz MD on 03/18/2021 2:46 PM PDT Station ID: [id number]
== END 2021-03-18 23:59 | disposition home or self-care (01) ==
LOC: DI.N 07:00
PROVIDERS: ATTEND Physician Assistant
DX: Z96.611 Presence of right artificial shoulder joint (principal)

== ENCOUNTER 2021-08-05 09:51 | Outpatient (CLI) | payer MEDICARE, OTHER ==
[2021-08-05 11:51] LABS: BILIRUBIN,URINE NEGATIVE (NEGATIVE); GLUCOSE, URINE (UA) NEGATIVE (NEGATIVE); KETONES,URINE (UA) NEGATIVE (NEGATIVE); LEUKOCYTE ESTERASE, URINE NEGATIVE (NEGATIVE); NITRITE,URINE NEGATIVE (NEGATIVE); OCCULT BLOOD,URINE NEGATIVE (NEGATIVE); PROTEIN,URINE NEGATIVE (NEGATIVE); UROBILINOGEN,URINE 0.2 (NORMAL) E.U./dL (NORMAL)
[2021-08-05 11:54] LABS: CLARITY,URINE CLEAR (CLEAR)
[2021-08-05 12:04] LABS: BASOPHILS % (AUTO) 0.5 %; EOSINOPHILS # (AUTO) 0.1 10^3/uL (0.0-0.7); EOSINOPHILS % (AUTO) 3.4 %; HCT - HEMATOCRIT 37.5 % (37.0-47.0); HGB - HEMOGLOBIN 12.3 g/dL (12.0-16.0); LYMPHOCYTES # (AUTO) 1.3 10^3/uL (1.5-3.5); LYMPHOCYTES % (AUTO) 31.3 %; MEAN CORPUSCULAR HEMOGLOBIN 30.2 pg (27.0-31.0); MEAN CORPUSCULAR HGB CONC 32.8 g/dL (32.0-36.0); MEAN CORPUSCULAR VOLUME 92.1 fL (81.0-99.0); MEAN PLATELET VOLUME 10.7 fL (7.9-10.8); MONOCYTES # (AUTO) 0.4 10^3/uL (0.0-1.0); MONOCYTES % (AUTO) 9.6 %; NEUTROPHILS # (AUTO) 2.3 10^3/uL (1.5-6.6); PLT - PLATELET COUNT 269 10^3/uL (130-450); RED BLOOD COUNT 4.07 10^6/uL (4.20-5.40); RED CELL DISTRIBUTION WIDTH 12.1 % (12.0-15.0); WHITE BLOOD COUNT 4.2 x10^3/uL (4.8-10.8)
[2021-08-05 12:09] LABS: BACTERIA,URINE None Seen /HPF (None Seen); RBC,URINE 0-5 /HPF (0-5); SQUAMOUS EPITHELIAL CELL,UR RARE Squamous (<= Few); WBC,URINE 0-3 /HPF (0-5)
[2021-08-05 12:40] LABS: THYROID STIMULATING HORMONE 0.64 uIU/mL (0.34-5.60)
[2021-08-05 12:42] LABS: ALBUMIN 3.8 g/dL (3.2-5.5); ALBUMIN/GLOBULIN RATIO 1.2 (1.0-2.2); ALKALINE PHOSPHATASE 136 IU/L (42-121); ALT ALANINE AMINOTRANSFERASE 13 IU/L (10-60); AST ASPARTATE AMINOTRANSFERASE 16 IU/L (10-42); BILIRUBIN,TOTAL 0.5 mg/dL (0.2-1.0); BUN - BLOOD UREA NITROGEN 22 mg/dL (6-20); CALCIUM 9.5 mg/dL (8.5-10.3); CARBON DIOXIDE - CO2 23 mmol/L (21-32); CHLORIDE 113 mmol/L (101-111); CHOL/HDL RATIO 4.2 (<4.4); CHOLESTEROL 173 mg/dL; CREATININE 0.9 mg/dL (0.4-1.0); GFR - MDRD 62 (>89); GLUCOSE 92 mg/dL (70-100); HDL CHOLESTEROL 41 mg/dL; LDL CHOLESTEROL,CALCULATED 113 mg/dL; LDL/HDL RATIO 2.8 (<4.4); POTASSIUM 4.1 mmol/L (3.5-5.0); SODIUM 144 mmol/L (135-145); TRIGLYCERIDES 97 mg/dL; VLDL CHOLESTEROL 19 mg/dL
== END 2021-08-05 23:59 | disposition home or self-care (01) ==
LOC: LAB.WCP 09:51
PROVIDERS: ATTEND Nurse Practitioner
DX: R53.83 Other fatigue (principal)
CPT/HCPCS: 36415; 80053; 80061; 81001; 83721; 84443; 85025; 87086

== ENCOUNTER 2021-08-13 12:43 | Outpatient (CLI) | payer MEDICARE, OTHER ==
--- NOTE | 2021-08-13 16:31 | MRI Report ---
PROCEDURE: Cervical Spine W/O INDICATIONS: CERVICAL DISC DISORDER WITH RADICULOPATHY TECHNIQUE: Noncontrast sagittal T1 spin echo and T2 fast spin echo, sagittal STIR, foraminal oblique sagittal T2 fast spin echo, and axial gradient echo or T2 fast spin echo through the cervical spine. COMPARISON: None. FINDINGS: Image quality: Excellent. Alignment and Curvature: There is normal bony alignment. Bone Marrow: Reactive endplate changes noted adjacent to the C3-C4, C4-C5, C5-C6 and C6-C7 discs. Spinal Cord: Visualized spinal cord has normal size and signal. No cerebellar tonsillar herniation. Paraspinous Soft Tissues: No paravertebral masses. Prevertebral soft tissues are normal in thicknes s. C2-C3: Loss of disc signal. Mild, diffuse disc bulge. No central stenosis. Mild left facet hypertrop hy. Mild left neural foraminal narrowing. No neural compression. C3-C4: Loss of disc signal and height. Moderate, diffuse disc bulge. Mild bilateral facet hypertrop hy. Mild bilateral uncovertebral joint hypertrophy. Mild narrowing of the central canal. Severe bilat eral neural foraminal narrowing with compression of the exiting C3 nerve roots. C4-C5: Loss of disc signal and height. Mild to moderate diffuse disc bulge. Mild bilateral facet hyp ertrophy. Mild bilateral uncovertebral joint hypertrophy. Mild narrowing of the central canal. Severe right and moderate left neural foraminal narrowing with compression of the exiting right C5 nerve ro ot. C5-C6: Loss of disc signal and height. Mild, diffuse disc bulge. Mild bilateral facet hypertrophy. M oderate left uncovertebral joint hypertrophy Mild narrowing of the central canal. Severe left neural foraminal narrowing with compression of the exiting left C6 nerve root. C6-C7: Loss of disc signal and height. Moderate, diffuse disc bulge. Mild bilateral facet hypertroph y. Mild left uncovertebral joint hypertrophy. [id number]-vx-[id number] narrowing of the central canal. Mild r ight and moderate left neural foraminal narrowing. No neural compression. C7-T1: Loss of disc signal. Mild, diffuse disc bulge. Mild narrowing of the central canal. No neural foraminal narrowing. No neural compression IMPRESSION: 1. Multilevel degenerative disc disease. 2. Multilevel facet and uncovertebral arthropathy. 3. No severe central canal narrowing. 4. Severe bilateral C3-C4 neural foraminal narrowing with compression of the exiting bilateral C3 ner ve roots. Severe right C4-C5 neural foraminal narrowing compression of the exiting right C5 nerve raheem t. Severe left C5-C6 neural foraminal narrowing with compression of exiting left C6 nerve root. Reviewed by: Mariama Shaikh MD, PhD on 08/13/2021 4:30 PM PDT Approved by: Mariama Shaikh MD, PhD on 08/13/2021 4:30 PM PDT Station ID: [id number]
== END 2021-08-13 12:44 | disposition home or self-care (01) ==
LOC: DI 12:43
PROVIDERS: ATTEND Nurse Practitioner
DX: M50.10 Cervical disc disorder with radiculopathy, unspecified cervical region (principal); M51.36 Other intervertebral disc degeneration, lumbar region

== ENCOUNTER 2022-10-28 09:12 | Outpatient (CLI) | payer MEDICARE, OTHER ==
[2022-10-28 12:17] LABS: BASOPHILS % (AUTO) 0.6 %; EOSINOPHILS # (AUTO) 0.1 10^3/uL (0.0-0.7); EOSINOPHILS % (AUTO) 2.7 %; HCT - HEMATOCRIT 40.4 % (37.0-47.0); HGB - HEMOGLOBIN 13.1 g/dL (12.0-16.0); LYMPHOCYTES # (AUTO) 1.6 10^3/uL (1.5-3.5); LYMPHOCYTES % (AUTO) 32.7 %; MEAN CORPUSCULAR HEMOGLOBIN 29.4 pg (27.0-31.0); MEAN CORPUSCULAR HGB CONC 32.4 g/dL (32.0-36.0); MEAN CORPUSCULAR VOLUME 90.6 fL (81.0-99.0); MEAN PLATELET VOLUME 10.9 fL (7.9-10.8); MONOCYTES # (AUTO) 0.5 10^3/uL (0.0-1.0); MONOCYTES % (AUTO) 10.1 %; NEUTROPHILS # (AUTO) 2.6 10^3/uL (1.5-6.6); NEUTROPHILS % (AUTO) 53.7 %; PLT - PLATELET COUNT 256 10^3/uL (130-450); RED BLOOD COUNT 4.46 10^6/uL (4.20-5.40); RED CELL DISTRIBUTION WIDTH 13.5 % (12.0-15.0); WHITE BLOOD COUNT 4.8 x10^3/uL (4.8-10.8)
[2022-10-28 13:19] LABS: ALBUMIN 3.9 g/dL (3.2-5.5); ALBUMIN/GLOBULIN RATIO 1.2 (1.0-2.2); BILIRUBIN,TOTAL 0.5 mg/dL (0.2-1.0); CALCIUM 9.2 mg/dL (8.5-10.3); CREATININE 1.1 mg/dL (0.4-1.0); POTASSIUM 3.9 mmol/L (3.5-5.0); TOTAL PROTEIN 7.1 g/dL (6.7-8.2)
== END 2022-10-28 09:13 | disposition home or self-care (01) ==
LOC: LAB.N 09:12
PROVIDERS: ATTEND Nurse Practitioner
DX: I10 Essential (primary) hypertension (principal)
CPT/HCPCS: 36415; 80053; 85025

== ENCOUNTER 2023-02-11 13:43 | Outpatient (CLI) | payer MEDICARE, OTHER ==
--- NOTE | 2023-02-11 16:13 | MRI Report ---
PROCEDURE: CERVICAL SPINE WO INDICATIONS: CERVICAL DISC DISORDER WITH RADICULOPATHY TECHNIQUE: Noncontrast sagittal T1 spin echo and T2 fast spin echo, sagittal STIR, foraminal oblique sagittal T2 fast spin echo, and axial gradient echo or T2 fast spin echo through the cervical spine. COMPARISON: None. FINDINGS: Image quality: Excellent. Alignment and Curvature: There is normal bony alignment. Bone Marrow: Marrow demonstrates normal overall signal. Spinal Cord: Visualized spinal cord has normal size and signal. No cerebellar tonsillar herniation. Paraspinous Soft Tissues: No paravertebral masses. Prevertebral soft tissues are normal in thicknes s. C2-C3: Normal in appearance. C3-C4: There is a mild diffuse disc spur complex present. There is severe bilateral neural foramina l stenosis. No central canal stenosis. C4-C5: There is a mild diffuse disc spur complex present. There is severe right and moderate left-si ded neural foraminal stenosis. No central canal stenosis. C5-C6: There is a mspxf-os-pcxpykhx sized disc spur complex present. There is moderate right and sev ere left-sided neural foraminal stenosis. No central canal stenosis. C6-C7: There is a small to moderate-sized disc spur complex present. There is moderate to severe karin ateral neural foraminal stenosis. Mild to moderate central canal stenosis. C7-T1: There is a mild diffuse disc spur complex present. There is moderate bilateral neural foramin al stenosis and mild to moderate central canal stenosis. IMPRESSION: Degenerative changes noted throughout the patient's cervical spine as described above on a level by l evel basis with the C6-C7 and C7-T1 levels being most severely affected. Reviewed by: Prasanth Javed MD on 02/11/2023 4:12 PM PDT Approved by: Prasanth Javed MD on 02/11/2023 4:12 PM PDT Station ID: [id number]
== END 2023-02-11 13:44 | disposition home or self-care (01) ==
LOC: DI 13:43
PROVIDERS: ATTEND Nurse Practitioner
DX: M48.02 Spinal stenosis, cervical region (principal); M25.78 Osteophyte, vertebrae; M47.22 Other spondylosis with radiculopathy, cervical region

== ENCOUNTER 2023-09-30 15:00 | Outpatient (CLI) | payer MEDICARE, OTHER ==
--- NOTE | 2023-09-30 15:51 | DEXA Report ---
PROCEDURE: Dexa Spine and/or Hip INDICATIONS: POST MENOPAUSAL TECHNIQUE: Dual energy x-ray absorptiometry (DXA) was performed on a AMVONET System. Regions measur ed are the AP Spine, femoral neck, and if needed forearm. COMPARISON: None FINDINGS: Lumbar Spine: Bone Mineral Density 1.096 g/cm/cm,T score -0.7. Left Femoral Neck: Bone Mineral Density 0.696 g/cm/cm, T score -2.5. Left Hip: Bone Mineral Density 0.732 g/cm/cm,T score -2.2. (T score greater or equal to -1.0: NORMAL) (T score from -1.1 to -2.4: OSTEOPENIA) (T score less than or equal to -2.5 to: OSTEOPOROSIS) Impression: By WHO criteria, this patient has osteoporosis. Patients with diagnosis of osteoporosis or osteopenia should have regular bone mineral density assess ment. For those eligible for Medicare, routine testing is allowed once every 2 years. Testing frequ ency can be increased for patients who have rapidly progressing disease or for those who are receivin g medical therapy to restore bone mass. Reviewed by: Peggy Reyna MD on 09/30/2023 3:50 PM PST Approved by: Peggy Reyna MD on 09/30/2023 3:50 PM PST Station ID: [id number]
== END 2023-09-30 15:01 | disposition home or self-care (01) ==
LOC: DI 15:00
PROVIDERS: ATTEND Nurse Practitioner
DX: Z78.0 Asymptomatic menopausal state (principal); M81.0 Age-related osteoporosis without current pathological fracture

== ENCOUNTER 2023-10-22 09:31 | Day surgery (SDC) | payer MEDICARE, OTHER ==
[2023-10-22] MEDS ORDERED: LACTATED RINGERS 1,000 ML IV ONE ×2 (09:45→12:09)
--- NOTE | 2023-10-22 10:17 | ANESTHESIA ---
Pre-Anesthesia VS, & Labs - Diagnosis screening exam - Procedure colonoscopy Vital Signs: Temp Pulse Resp BP Pulse Ox O2 Flow Rate 36.3 C L 84 18 147/77 H 97 10/22/23 09:45 10/22/23 09:45 10/22/23 09:45 10/22/23 09:45 10/22/23 09:45 Height: 5 ft 1 in Weight (kg): 65.6 kg Body Mass Index: 27.3 BMI Classification: Overweight - NPO >8 hours - Is Patient ?: No Home Medications and Allergies Home Medications: Ambulatory Orders Gabapentin [Neurontin] 300 mg PO TID 10/21/23 Spironolactone [Aldactone] 25 mg PO BID 12/06/20 Sumatriptan Succinate [Imitrex] 50 mg PO DAILY PRN MDD 100 MG 12/06/20 Lisinopril [Zestril] 40 mg PO DAILY 12/12/20 QUEtiapine [SEROquel] 200 mg PO QPM 12/12/20 buPROPion [Wellbutrin Sr] 100 mg PO DAILY 12/12/20 hydroCHLOROthiazide [Hydrodiuril] 12.5 mg PO DAILY 12/12/20 Gabapentin [Neurontin] 300 mg PO TID 10/21/23 Allergies/Adverse Reactions: Allergies Allergy/AdvReac Type Severity Reaction Status Date / Time morphine Allergy Itching Verified 10/21/23 14:12 Anes History & Medical History - Anesthetic History Anesthesia Complications: reports: Post-Operative Nausea/Vomiting - Medical History Cardiovascular: reports: Hypertension, Murmur Pulmonary: reports: None Gastrointestinal: reports: GERD Urinary: reports: None Neuro: reports: None Musculoskeletal: reports: Osteoarthritis, Other Endocrine/Autoimmune: reports: None Skin: reports: None Smoking Status: Never smoker Psychosocial: reports: Depression History of Cancer?: No - Surgical History General: reports: Colonoscopy, EGD Gynecologic: reports: Hysterectomy Orthopedic: reports: Knee replacement, Shoulder arthroplasty Exam General: Alert, Oriented x3, Cooperative Dental: Dentures full Upper, Dentures full Lower Mouth Openin Fingerbreadth Neck Mobility: Normal Mallampati classification: II Thyromental Distance: 4-6 cm Mental/Cognitive Status: Alert/Oriented X3, Normal for patient Plan Anesthesia Type: General, Total IV Consent for Procedure(s) Verified and Reviewed: Yes Code Status: Attempt Resuscitation ASA classification: 2-Mild systemic disease Is this case an emergency?: No
[2023-10-22] MEDS ORDERED: PROPOFOL 200 MG/20 ML VIAL IVP ONE ×3 (10:42→12:02)
[2023-10-22 12:31] VITALS: BP 130/85; O2SAT 97
--- NOTE | 2023-10-22 21:41 | ANESTHESIA POST OP EVALUATION ---
Anesthesia Post Eval - Post Anesthesia Eval Vitals: Last Vital Signs Temp 36.3 C L 10/22/23 12:08 Pulse 82 10/22/23 12:28 Resp 16 10/22/23 12:28 BP 130/85 H 10/22/23 12:28 Pulse Ox 97 10/22/23 12:28 O2 Flow Rate CV Function Including HR & BP: Stable Pain Control: Satisfactory Nausea & Vomiting: Negative Mental Status: Baseline Respiratory Status: Airway Patent Hydration Status: Satisfactory Anesthesia Complications: None
== END 2023-10-22 09:32 | disposition home or self-care (01) ==
LOC: SDS 09:31
PROVIDERS: ATTEND Surgery
DX: Z12.11 Encounter for screening for malignant neoplasm of colon (principal); K57.30 Diverticulosis of large intestine without perforation or abscess without bleeding; I12.9 Hypertensive chronic kidney disease with stage 1 through stage 4 chronic kidney disease, or unspecified chronic kidney disease; N18.31 Chronic kidney disease, stage 3a
CPT/HCPCS: G0121; J7120

== ENCOUNTER 2023-12-29 08:00 | Outpatient (CLI) | payer MEDICARE, OTHER | END 2023-12-29 08:01 | disposition home or self-care (01) | LOC: LAB.N 08:00 | PROVIDERS: ATTEND Physician Assistant Medical | DX: J06.9 Acute upper respiratory infection, unspecified (principal) ==

== ENCOUNTER 2023-12-29 08:45 | Outpatient (CLI) | payer MEDICARE, OTHER ==
--- NOTE | 2023-12-29 10:24 | XRAY Report ---
PROCEDURE: Chest 2V INDICATIONS: WHEEZING TECHNIQUE: 2 views of the chest were acquired. COMPARISON: None. FINDINGS: Surgical changes and devices: Partially visualized neck fixation hardware as well as right shoulder arthroplasty are present. Lungs and pleura: No pleural effusions or pneumothorax. Lungs are clear. Mediastinum: Mediastinal contours appear normal. Heart size is mildly prominent. Bones and chest wall: No suspicious bony lesions. Overlying soft tissues appear unremarkable. IMPRESSION: No acute cardiopulmonary process. Reviewed by: Theresa Nunez MD on 12/29/2023 10:23 AM [facility] Approved by: Theresa Nunez MD on 12/29/2023 10:23 AM [facility] Station ID: [id number]
== END 2023-12-29 09:00 | disposition home or self-care (01) ==
LOC: DI.N 08:45
PROVIDERS: ATTEND Physician Assistant Medical
DX: R06.2 Wheezing (principal)

== ENCOUNTER 2024-03-01 10:04 | Emergency (ER) | payer MEDICARE, OTHER ==
--- NOTE | 2024-03-01 10:40 | ED Physician Documentation ---
PD HPI NVD - Stated complaint Stated Complaint: N/V/D,LETHARGIC,MARVIN - Chief complaint Chief Complaint: Abd Pain - History obtained from History obtained from: Patient - Additonal information Additional information: Patient is a 73-year-old female with a history of hypertension presenting for evaluation of nausea and vomiting for the past 5 days and having trouble keeping any p.o. intake down. She was able to take some sips of water today. Also reports having 1 episode of diarrhea. No blood in emesis or stools. Reports Bering feeling very weak including lightheaded with standing. Denies chest pain, shortness of air, abdominal pain. Denies known sick contacts, recent travel or hospitalization. Denies history of abdominal surgeries.Also reports a frontal headache that feels like a throbbing. Does have a history of migraines. This is not the worst headache she has had. On further history patient does report having episodes of pressure under the left breast that Has been intermittent over the last week. Review of Systems Constitutional: denies: Fever Cardiac: reports: Chest pain / pressure Respiratory: denies: Dyspnea GI: reports: Nausea, Vomiting. denies: Abdominal Pain : denies: Dysuria PD PAST MEDICAL HISTORY - Past Medical History Cardiovascular: Hypertension, Murmur Respiratory: None Neuro: Migraines Endocrine/Autoimmune: None GI: GERD NATIONAL RECRUITER: None : None HEENT: Chronic vision loss Psych: Depression Musculoskeletal: Osteoarthritis, Other Derm: None - Past Surgical History Past Surgical History: Yes General: Colonoscopy, EGD Ortho: Knee replacement, Shoulder arthroplasty /NATIONAL RECRUITER: Hysterectomy - Present Medications Home Medications: Ambulatory Orders Medication Instructions Recorded Confirmed Spironolactone [Aldactone] 25 mg PO BID 12/06/20 03/01/24 Sumatriptan Succinate [Imitrex] 50 mg PO DAILY PRN MDD 100 MG 12/06/20 03/01/24 Lisinopril [Zestril] 40 mg PO DAILY 12/12/20 03/01/24 QUEtiapine [SEROquel] 200 mg PO QPM 12/12/20 03/01/24 buPROPion [Wellbutrin Sr] 100 mg PO DAILY 12/12/20 03/01/24 hydroCHLOROthiazide [Hydrodiuril] 12.5 mg PO DAILY 12/12/20 03/01/24 Gabapentin [Neurontin] 300 mg PO TID 10/21/23 03/01/24 Atorvastatin [Lipitor] 10 mg ORAL HS 03/01/24 03/01/24 Mirtazapine 15 mg PO HS 03/01/24 03/01/24 - Allergies Allergies/Adverse Reactions: Allergies Allergy/AdvReac Type Severity Reaction Status Date / Time morphine Allergy Itching Verified 03/01/24 10:11 - Social History Does the pt smoke?: No Smoking Status: Never smoker Does the pt drink ETOH?: No Does the pt have substance abuse?: No - Immunizations Immunizations are current?: Yes - POLST Patient has POLST: No PD ED PE NORMAL - General General: Alert and oriented X 3, No acute distress, Well developed/nourished - HEENT HEENT: Atraumatic, Pharynx benign - Neck Neck: Supple, no meningeal sign - Cardiac Cardiac: RRR, Strong equal pulses - Respiratory Respiratory: No respiratory distress, Clear bilaterally - Abdomen Abdomen: Normal bowel sounds, Soft, Non tender, Non distended - Derm Derm: Warm and dry - Neuro Neuro: Normal speech Results - Vitals Vitals: Vital Signs - 24 hr 03/01/24 03/01/24 03/01/24 10:11 12:19 12:30 Temperature 36 C L Heart Rate 77 125 H 148 H Respiratory 20 16 Rate Blood Pressure 116/70 121/91 H 93/75 O2 Saturation 100 98 03/01/24 03/01/24 03/01/24 12:44 12:53 12:58 Temperature Heart Rate 107 H 101 H 85 Respiratory 16 Rate Blood Pressure 114/79 103/76 105/75 O2 Saturation 98 03/01/24 03/01/24 03/01/24 13:02 13:07 13:23 Temperature Heart Rate 92 90 89 Respiratory Rate Blood Pressure 116/77 116/77 108/73 O2 Saturation 03/01/24 03/01/24 13:38 13:53 Temperature Heart Rate 87 92 Respiratory Rate Blood Pressure 101/74 108/72 O2 Saturation Oxygen O2 Source Room air - EKG (time done) 1104 EKG releavant findings:: EKG personally interpreted by author of this note. Relevant findings are: Rate 125, atrial fibrillation, no STEMI - Labs Labs: Laboratory Tests 03/01/24 03/01/24 03/01/24 10:46 10:46 10:46 WBC 9.0 RBC 5.15 Hgb 15.0 Hct 44.5 MCV 86.4 MCH 29.1 MCHC 33.7 RDW 13.2 Plt Count 307 MPV 9.9 Neut # (Auto) 6.5 Lymph # (Auto) 1.6 [place] # (Auto) 0.8 Eos # (Auto) 0.1 Baso # (Auto) 0.0 Absolute Nucleated RBC 0.00 Nucleated RBC % 0.0 Sodium 137 Potassium 3.1 L Chloride 105 Carbon Dioxide 20 L Anion Gap 12.0 BUN 26 H Creatinine 1.4 H Estimated GFR (MDRD) 37 L Glucose 144 H Calcium 9.6 Total Bilirubin 0.6 AST 20 ALT 10 Alkaline Phosphatase 115 Troponin I High Sens 1193.9 H* Total Protein 7.1 Albumin 3.9 Globulin 3.2 Albumin/Globulin Ratio 1.2 Lipase 343 H TSH 2.42 Urine Color Urine Clarity Urine pH Ur Specific Kramer Urine Protein Urine Glucose (UA) Urine Ketones Urine Occult Blood Urine Nitrite Urine Bilirubin Urine Urobilinogen Ur Leukocyte Esterase Urine RBC Urine WBC Ur Squamous Epith Cells Urine Bacteria Ur Microscopic Review Urine Culture Comments 03/01/24 14:05 WBC RBC Hgb Hct MCV MCH MCHC RDW Plt Count MPV Neut # (Auto) Lymph # (Auto) [place] # (Auto) Eos # (Auto) Baso # (Auto) Absolute Nucleated RBC Nucleated RBC % Sodium Potassium Chloride Carbon Dioxide Anion Gap BUN Creatinine Estimated GFR (MDRD) Glucose Calcium Total Bilirubin AST ALT Alkaline Phosphatase Troponin I High Sens Total Protein Albumin Globulin Albumin/Globulin Ratio Lipase TSH Urine Color YELLOW Urine Clarity HAZY Urine pH 6.5 Ur Specific Kramer 1.015 Urine Protein NEGATIVE Urine Glucose (UA) NEGATIVE Urine Ketones NEGATIVE Urine Occult Blood NEGATIVE Urine Nitrite POSITIVE H Urine Bilirubin NEGATIVE Urine Urobilinogen 1 (NORMAL) Ur Leukocyte Esterase TRACE H Urine RBC 0-5 Urine WBC 11-25 H Ur Squamous Epith Cells MOD Squamous H Urine Bacteria Many H Ur Microscopic Review INDICATED Urine Culture Comments NOT INDICATED PD Medical Decision Making - ED course Complexity details: reviewed results, re-evaluated patient, d/w patient, d/w family ED course: Patient is a 73-year-old female with History of high blood pressure and hyperlipidemia presenting for evaluation of feeling unwell for the past several days with nausea and vomiting, lightheadedness. On further history does report having intermittent episodes of chest pain. Initial vitals were stable but patient then became tachycardic and EKG noted that she is in A-fib with RVR. Patient is unclear whether she has a history of this before but states that during prior hospitalization she was Transferred to [facility] because her heart rates were elevated and this was several years ago. She does not currently follow with cardiology. She has never been on a blood thinner. CBC, chemistries, troponin were obtained and reviewed. Potassium is low at 3.1 which was replaced orally. Troponin is significantly elevated at 1193. Chest x-ray which I reviewed does not show any significant findings. Urine analysis is concerning for infection so patient was given a dose of Rocephin. For her A-fib she was given IV fluids and a single dose of Lopressor with good rate control. Given her troponin elevation and reports of having intermittent episodes of chest pain I am concerned for an NSTEMI. I have started her on aspirin and given her dose of Lovenox. She is currently pain-free. She understands need for transfer. Patient is signed out at shift change pending transfer to facility with cardiology capabilities. Departure - Departure Disposition: 02 Transfer Acute Care Hosp Clinical Impression: NSTEMI (non-ST elevated myocardial infarction), New onset atrial fibrillation, Hypokalemia, Nausea & vomiting Forms: PCP List
[2024-03-01 10:55] LABS: BASOPHILS % (AUTO) 0.3 %; EOSINOPHILS # (AUTO) 0.1 10^3/uL (0.0-0.7); EOSINOPHILS % (AUTO) 0.6 %; HCT - HEMATOCRIT 44.5 % (37.0-47.0); LYMPHOCYTES # (AUTO) 1.6 10^3/uL (1.5-3.5); LYMPHOCYTES % (AUTO) 17.4 %; MEAN CORPUSCULAR HEMOGLOBIN 29.1 pg (27.0-31.0); MEAN CORPUSCULAR HGB CONC 33.7 g/dL (32.0-36.0); MEAN CORPUSCULAR VOLUME 86.4 fL (81.0-99.0); MEAN PLATELET VOLUME 9.9 fL (7.9-10.8); MONOCYTES # (AUTO) 0.8 10^3/uL (0.0-1.0); MONOCYTES % (AUTO) 8.7 %; NEUTROPHILS # (AUTO) 6.5 10^3/uL (1.5-6.6); NEUTROPHILS % (AUTO) 72.6 %; PLT - PLATELET COUNT 307 10^3/uL (130-450); RED BLOOD COUNT 5.15 10^6/uL (4.20-5.40); RED CELL DISTRIBUTION WIDTH 13.2 % (12.0-15.0)
[2024-03-01] MEDS: SODIUM CHLORIDE 0.9% 1,000 ML IV STA (11:03)
[2024-03-01] MEDS: ONDANSETRON 4 MG/2 ML VIAL IVP STA (11:03)
[2024-03-01 11:13] LABS: ALBUMIN 3.9 g/dL (3.2-5.5); ALBUMIN/GLOBULIN RATIO 1.2 (1.0-2.2); BILIRUBIN,TOTAL 0.6 mg/dL (0.2-1.0); CALCIUM 9.6 mg/dL (8.5-10.3); CREATININE 1.4 mg/dL (0.6-1.3); POTASSIUM 3.1 mmol/L (3.5-4.5); TOTAL PROTEIN 7.1 g/dL (6.4-8.9)
[2024-03-01 11:52] LABS: TROPONIN I HIGH SENSITIVITY 1193.9 ng/L (2.3-14.8)
[2024-03-01 11:57] LABS: THYROID STIMULATING HORMONE 2.42 uIU/mL (0.34-5.60)
[2024-03-01] MEDS: METOPROLOL 5 MG/5 ML VIAL IVP STA (12:48)
[2024-03-01] MEDS: ENOXAPARIN 60 MG/0.6 ML SYRINGE SUBQ STA (13:00)
[2024-03-01] MEDS: ASPIRIN CHEW 81 MG TABLET PO STA (13:00)
--- NOTE | 2024-03-01 13:12 | XRAY Report ---
PROCEDURE: Chest 1V INDICATIONS: Chest pain TECHNIQUE: One view of the chest was acquired. COMPARISON: None chest radiograph on December 29, 2023 FINDINGS: Overlying EKG leads limit evaluation. Surgical changes and devices: Right total shoulder arthroplasty. Partially visualized cervical spine hardware. Lungs and pleura: No pleural effusions or pneumothorax. Lungs are clear. Mediastinum: Mediastinal contours appear normal. Heart size is normal. Bones and chest wall: No suspicious bony lesions. Overlying soft tissues appear unremarkable. IMPRESSION: Overlying EKG leads limit evaluation. No acute cardiopulmonary process. Reviewed by: Lindsey Crawford MD on 03/01/2024 1:11 PM PDT Approved by: Lindsey Crawford MD on 03/01/2024 1:11 PM PDT Station ID: [id number]
[2024-03-01] MEDS: POTASSIUM BICARB 25 MEQ TABLET PO ONE (13:42)
[2024-03-01 14:11] LABS: BILIRUBIN,URINE NEGATIVE (NEGATIVE); CLARITY,URINE HAZY (CLEAR); GLUCOSE, URINE (UA) NEGATIVE (NEGATIVE); KETONES,URINE (UA) NEGATIVE (NEGATIVE); LEUKOCYTE ESTERASE, URINE TRACE (NEGATIVE); NITRITE,URINE POSITIVE (NEGATIVE); OCCULT BLOOD,URINE NEGATIVE (NEGATIVE); PH,URINE 6.5 PH (5.0-7.5); PROTEIN,URINE NEGATIVE (NEGATIVE); UROBILINOGEN,URINE 1 (NORMAL) E.U./dL (NORMAL)
[2024-03-01 14:27] LABS: BACTERIA,URINE Many /HPF (None Seen); RBC,URINE 0-5 /HPF (0-5); SQUAMOUS EPITHELIAL CELL,UR MOD Squamous (<= Few)
[2024-03-01] MEDS: cefTRIAXone 1 GM in SODIUM CHLORIDE 0.9% MINIBAG 100 ML IV STA (15:09)
--- NOTE | 2024-03-01 15:38 | ED Physician Documentation ---
ED Addendum - Addendum Addendum: 03/01/24 15:[address] Veliz, cardiology at [facility] at this time. He feels she is an appropriate transfer and defers to medicine for admission. They will call me back with hospitalist. 03/01/24 15:56 Septic at this time by Dr. Norm Mustafa, hospitalist in [place] to [facility]. Disposition: Transferred to [facility] for cardiac care Condition: Stable Diagnosis: 1. Atrial fibrillation with RVR 2. Non-STEMI
[2024-03-01 17:48] VITALS: BP 107/64; O2SAT 97
== END 2024-03-01 18:10 | disposition short-term general hospital (02) ==
LOC: ED 10:04
DX: I21.4 Non-ST elevation (NSTEMI) myocardial infarction (principal); I48.91 Unspecified atrial fibrillation; I10 Essential (primary) hypertension; E78.5 Hyperlipidemia, unspecified; Z79.899 Other long term (current) drug therapy
CPT/HCPCS: 36415; 71045; 80053; 81001; 83690; 84443; 84484; 85025; 93005; 96365; 96372; 96375; 99284; 99285; A9270; J1650; 81003; 87086

== ENCOUNTER 2024-03-01 18:11 | Outpatient (CLI) | payer MEDICARE, OTHER | END 2024-03-01 23:59 | disposition short-term general hospital (02) | LOC: EMS 18:11 | PROVIDERS: ATTEND Emergency Medicine | DX: I21.4 Non-ST elevation (NSTEMI) myocardial infarction (principal) | CPT/HCPCS: A0425; A0428 ==

== ENCOUNTER 2024-03-09 09:49 | Outpatient (CLI) | payer MEDICARE, OTHER ==
[2024-03-09 11:41] LABS: BASOPHILS % (AUTO) 0.8 %; EOSINOPHILS # (AUTO) 0.3 10^3/uL (0.0-0.7); EOSINOPHILS % (AUTO) 5.3 %; HCT - HEMATOCRIT 35.1 % (37.0-47.0); HGB - HEMOGLOBIN 11.1 g/dL (12.0-16.0); LYMPHOCYTES # (AUTO) 1.7 10^3/uL (1.5-3.5); LYMPHOCYTES % (AUTO) 33.8 %; MEAN CORPUSCULAR HEMOGLOBIN 29.8 pg (27.0-31.0); MEAN CORPUSCULAR HGB CONC 31.6 g/dL (32.0-36.0); MEAN CORPUSCULAR VOLUME 94.1 fL (81.0-99.0); MEAN PLATELET VOLUME 11.3 fL (7.9-10.8); MONOCYTES # (AUTO) 0.5 10^3/uL (0.0-1.0); MONOCYTES % (AUTO) 9.9 %; NEUTROPHILS # (AUTO) 2.5 10^3/uL (1.5-6.6); NEUTROPHILS % (AUTO) 49.8 %; PLT - PLATELET COUNT 254 10^3/uL (130-450); RED BLOOD COUNT 3.73 10^6/uL (4.20-5.40); RED CELL DISTRIBUTION WIDTH 14.2 % (12.0-15.0); WHITE BLOOD COUNT 4.9 x10^3/uL (4.8-10.8)
[2024-03-09 12:16] LABS: ALBUMIN 3.6 g/dL (3.2-5.5); ALBUMIN/GLOBULIN RATIO 1.5 (1.0-2.2); BILIRUBIN,TOTAL 0.3 mg/dL (0.2-1.0); CREATININE 1.4 mg/dL (0.6-1.3)
== END 2024-03-09 09:50 | disposition home or self-care (01) ==
LOC: LAB.N 09:49
PROVIDERS: ATTEND Nurse Practitioner
DX: I10 Essential (primary) hypertension (principal); N39.0 Urinary tract infection, site not specified
CPT/HCPCS: 36415; 80053; 85025

== ENCOUNTER 2024-04-13 08:51 | Outpatient (CLI) | payer MEDICARE, OTHER ==
[2024-04-13 12:09] LABS: BASOPHILS % (AUTO) 0.6 %; EOSINOPHILS # (AUTO) 0.2 10^3/uL (0.0-0.7); EOSINOPHILS % (AUTO) 2.3 %; HCT - HEMATOCRIT 39.4 % (37.0-47.0); HGB - HEMOGLOBIN 12.2 g/dL (12.0-16.0); LYMPHOCYTES # (AUTO) 1.4 10^3/uL (1.5-3.5); LYMPHOCYTES % (AUTO) 20.8 %; MEAN CORPUSCULAR HEMOGLOBIN 28.6 pg (27.0-31.0); MEAN CORPUSCULAR VOLUME 92.5 fL (81.0-99.0); MEAN PLATELET VOLUME 11.3 fL (7.9-10.8); MONOCYTES # (AUTO) 0.7 10^3/uL (0.0-1.0); MONOCYTES % (AUTO) 9.6 %; NEUTROPHILS # (AUTO) 4.6 10^3/uL (1.5-6.6); NEUTROPHILS % (AUTO) 66.4 %; PLT - PLATELET COUNT 241 10^3/uL (130-450); RED BLOOD COUNT 4.26 10^6/uL (4.20-5.40); RED CELL DISTRIBUTION WIDTH 13.4 % (12.0-15.0); WHITE BLOOD COUNT 6.9 x10^3/uL (4.8-10.8)
[2024-04-13 12:52] LABS: ALBUMIN/GLOBULIN RATIO 1.5 (1.0-2.2); ALKALINE PHOSPHATASE 85 IU/L (42-121); ALT ALANINE AMINOTRANSFERASE 8 IU/L (10-60); AST ASPARTATE AMINOTRANSFERASE 14 IU/L (10-42); BILIRUBIN,TOTAL 0.4 mg/dL (0.2-1.0); BUN - BLOOD UREA NITROGEN 30 mg/dL (6-20); CARBON DIOXIDE - CO2 28 mmol/L (21-32); CHLORIDE 106 mmol/L (101-111); CHOLESTEROL 126 mg/dL; CREATININE 1.6 mg/dL (0.6-1.3); GFR - MDRD 32 (>89); GLUCOSE 106 mg/dL (74-104); HDL CHOLESTEROL 42 mg/dL; LDL CHOLESTEROL,CALCULATED 65 mg/dL; LDL/HDL RATIO 1.5 (<4.4); POTASSIUM 3.5 mmol/L (3.5-4.5); SODIUM 140 mmol/L (135-145); TOTAL PROTEIN 6.7 g/dL (6.4-8.9); TRIGLYCERIDES 94 mg/dL (48-352); VLDL CHOLESTEROL 19 mg/dL
== END 2024-04-13 08:52 | disposition home or self-care (01) ==
LOC: LAB.N 08:51
PROVIDERS: ATTEND Nurse Practitioner
DX: I21.4 Non-ST elevation (NSTEMI) myocardial infarction (principal); I51.81 Takotsubo syndrome; I12.9 Hypertensive chronic kidney disease with stage 1 through stage 4 chronic kidney disease, or unspecified chronic kidney disease; N18.31 Chronic kidney disease, stage 3a; E78.5 Hyperlipidemia, unspecified; R53.83 Other fatigue
CPT/HCPCS: 36415; 80053; 80061; 83721; 85025

== ENCOUNTER 2024-08-12 12:28 | Outpatient (CLI) | payer MEDICARE, OTHER ==
--- NOTE | 2024-08-14 03:32 | Ultrasound Report ---
PROCEDURE: Renal (Retroperitoneal) INDICATIONS: KIDNEY DYSFUNCTION TECHNIQUE: Real-time scanning was performed of the retroperitoneal organs, with image documentation. COMPARISON: None. FINDINGS: Kidneys: Kidneys are normal in size. Right kidney measures 8.56 cm long; left kidney measures 8.45 cm long. Right renal cortical thickness is 1.1 cm; left renal cortical thickness is 0.92 cm. No rancho id masses, hydronephrosis, or nephrolithiasis. Bladder: Pre-void bladder volume is 64.92 mL. Post-void residual is 21.19 mL. Pre-void images demo nstrate no intraluminal masses or stones. On pre-void images, bilateral ureteral jets are noted with color Doppler interrogation. (Of note, ureteral jets may not be detectable in up to 25% of cases du e to insufficient differences in specific gravity between ureteral and bladder urine). Miscellaneous: No free abdominal fluid. IMPRESSION: Unremarkable ultrasound examination of bilateral kidneys. Normal-appearing urinary bladder with small amount of post void residual. Reviewed by: Jsoe James MD on 08/14/2024 3:30 AM PDT Approved by: Jose James MD on 08/14/2024 3:30 AM PDT Station ID: [id number]
== END 2024-08-12 12:29 | disposition home or self-care (01) ==
LOC: DI 12:28
PROVIDERS: ATTEND Internal Medicine Nephrology
DX: N28.9 Disorder of kidney and ureter, unspecified (principal); N13.8 Other obstructive and reflux uropathy